=== PATIENT | male | born 1975 | race African-American/Black ===

== ENCOUNTER 2023-07-13 14:32 | Emergency (ER) | payer OTHER ==
[~2023-07-13] VITALS: Ht 190.5 cm; Wt 102.3 kg
[2023-07-13 14:35] VITALS: BP 138/91; PULSE 58; RESP 18; TEMP 98.2
[2023-07-13] MEDS ORDERED: IBUP-1554 PO (16:27)
[2023-07-13] MEDS ORDERED: CYCL-448 PO (16:27)
== END 2023-07-13 16:32 | disposition home or self-care (01) ==
LOC: EDBD 14:32 → EMS 14:32
DX: L72.3 Sebaceous cyst (principal); G44.209 Tension-type headache, unspecified, not intractable; F12.90 Cannabis use, unspecified, uncomplicated; Z87.891 Personal history of nicotine dependence
CPT/HCPCS: 99283; Z7502

== ENCOUNTER 2023-07-26 08:43 | Emergency (ER) | payer OTHER ==
[~2023-07-26] VITALS: Ht 190.5 cm; Wt 102.3 kg
[~2023-07-26 08:43] MED LIST: CYCL-448 PO; IBUP-1554 PO
[2023-07-26 08:47] VITALS: BP 127/96; PULSE 100; RESP 18; TEMP 98.3
[2023-07-26] MEDS: OxyCODONE HCL/ACETAMINOPHEN 5-325 MG TABLET PO ONE (09:31)
[2023-07-26] MEDS ORDERED: PENI500T2 PO (11:34)
[2023-07-26] MEDS ORDERED: PERCT PO (11:34)
== END 2023-07-26 11:59 | disposition home or self-care (01) ==
LOC: EMS 08:48
DX: H93.11 Tinnitus, right ear (principal); K02.9 Dental caries, unspecified; R51.9 Headache, unspecified; F12.90 Cannabis use, unspecified, uncomplicated; Z87.891 Personal history of nicotine dependence
CPT/HCPCS: 70450; 99283; 99284